=== PATIENT | female | born 2000 | race Caucasian/White ===

== ENCOUNTER 2022-03-06 21:27 | Emergency (ER) | payer SELFPAY ==
[2022-03-06 21:47] VITALS: BP 175/89; PULSE 75; RESP 18; TEMP 36.6; O2SAT 100; BMI 21.2
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
[2022-03-06] MEDS: HYDROcodone-acetaminophen 5-325 mg Tablet 1 TAB PO (22:05)
[2022-03-06] MEDS: tetanus-dipt-pertussis 0.5 mL SDV IM (22:05)
[2022-03-06] MEDS: neomycin-poly-bacitracin oint 28 gm 1 APPLIC TOPICAL (22:06)
[2022-03-06 22:40] VITALS: RESP 18
== END 2022-03-06 22:41 | disposition home or self-care (01) ==
PROVIDERS: Emergency Provider Physician Assistant; PCP Nurse Practitioner Family
DX: T23.252A Burn of second degree of left palm, initial encounter (principal); X12.XXXA Contact with other hot fluids, initial encounter; Y93.G1 Activity, food preparation and clean up; Y92.89 Other specified places as the place of occurrence of the external cause; Z23 Encounter for immunization
CPT/HCPCS: 90471; 90715; 99283

== ENCOUNTER 2023-08-17 17:26 | Emergency (ER) | payer SELFPAY ==
[2023-08-17 17:31] VITALS: BP 168/106; PULSE 51; RESP 18; TEMP 36.6; O2SAT 98; BMI 19.5
--- NOTE | 2023-08-17 17:36 | ECG_ITS ---
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 Measurements Intervals [place] Rate: 57 P: 59 IA: 162 QRS: 56 QRSD: 90 T: 63 QT: 376 QTc: 367 Interpretive Statements SINUS BRADYCARDIA Compared to ECG 06/23/2019 12:45:29 Sinus rhythm no longer present Electronically Signed On 08-17-2023 20:27:34 CDT by Yanira Batista M.D. [id number]
--- NOTE | 2023-08-17 17:56 | XRR_ITS ---
PROCEDURE INFORMATION: Exam: XR Chest Exam date and time: 08/17/2023 6:07 PM Age: 23 years old Clinical indication: Chest pressure; Prior surgery; Surgery date: 6+ months; Surgery type: Cardiac stents; Patient HX: Chest pain; Near syncope TECHNIQUE: Imaging protocol: Radiologic exam of the chest. Views: 1 view. COMPARISON: CT angio chest PE protcl [id number] 06/23/2019 2:08 PM FINDINGS: Lungs: Unremarkable. No consolidation. Pleural spaces: Unremarkable. No pleural effusion. No pneumothorax. Heart/Mediastinum: Aortic stent noted at the level of the diaphragm which is similar in location and appearance to the prior chest CT dated 06/23/2019. No cardiomegaly. Bones/joints: Unremarkable. XR/XR chest 1V portable [id number] IMPRESSION: 1. No acute findings. 2. Aortic stent noted at the level of the diaphragm which is similar in location and appearance to the prior chest CT dated 06/23/2019.
--- NOTE | 2023-08-17 17:57 | W.ED.CHESTPA ---
HPI - Chest Pain General: Chief Complaint: Chest Pain Stated Complaint: cHEST PAIN Time Seen by Provider: 08/17/23 17:46 History of Present Illness: 23-year-old female comes in today for complaints of feeling weak and dizzy with sweating while she was at work. Patient reports that she had a sudden onset of symptoms. Patient does have a history of aortic stenosis with stent placement. Last stent was placed 4 to 5 years ago. Patient last seen her forensic structural engineer 1 year ago. Cardiology strongly recommended patient continue with her medications which include lisinopril and amlodipine. Patient reports she has not been taking her medicine. Patient states financial reasons for not taking her medications. Patient does vape marijuana and nicotine. Associated symptoms: Reports dyspnea and nausea; Deny vomiting Review of Systems General: Reports: 10 or more systems reviewed and unremarkable except in HPI and below Card: Denies: chest pain Resp: Reports: dyspnea GI: Reports: nausea; Denies: vomiting, diarrhea or constipation Neuro: Reports: dizziness [facility] ED PFSH: Medical History No pertinent family history Surgical History No pertinent past surgical history Physical Exam Const: COMMON NORMALS: alert HENMT: COMMON NORMALS: normocephalic HEAD & SCALP: normocephalic THROAT: posterior oropharynx normal Neck/C-Spine: COMMON NORMALS: full ROM Resp: COMMON NORMALS: normal respiratory effort and clear to auscultation bilaterally AUSCULTATION: clear to auscultation bilaterally Cardio: COMMON NORMALS: regular rate and regular rhythm RATE: regular rate RHYTHM: regular rhythm Extremity: COMMON NORMALS: no pedal edema Neuro: SENSORIUM/ORIENTATION: Yes alert Skin: COMMON NORMALS: turgor normal GENERAL SKIN EXAM: turgor normal Course Vital Signs: Vital signs: Vital Signs Temperature 97.8 F 08/17/23 17:31 Pulse Rate 51 L 08/17/23 19:03 Respiratory Rate 16 08/17/23 19:03 Blood Pressure 116/69 08/17/23 19:03 Pulse Oximetry 99 08/17/23 19:03 Oxygen Delivery Me thod Room Air 08/17/23 17:31 MDM - Chest Pain Medical Decision Making Patient 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 Patient appears nontoxic. Patient reports improvement of symptoms since arrival to the ER. Lungs are clear to auscultation. Vital signs are normal except for some elevation of blood pressure. Differential diagnosis includes not limited to anxiety, vasovagal syncope, uncontrolled hypertension, aortic stenosis. CBC and CMP were unremarkable. Troponin was no change at 2 hours. Chest x-ray noted no abnormalities with stent in place in the descending aorta. No change was noted in the stent placement. Reviewed the exam with Dr. Sanchez who agreed with plan of care for discharge with patient need to follow-up with cardiology and primary care. Patient was restarted on her lisinopril 10 mg daily blood pressure did seem to improve prior to discharge from the emergency department to normal range. Lab Data 08/17/23 17:37 08/17/23 17:37 Radiology Impressions Chest X-Ray 08/17/23 17:56 IMPRESSION: 1. No acute findings. 2. Aortic stent noted at the level of the diaphragm which is similar in location and appearance to the prior chest CT dated 06/23/2019. Laboratory Results WBC 6.27 10^3/uL (3.29-11.43) 08/17/23 17:37 RBC 5.17 10^6/uL (3.85-5.65) 08/17/23 17:37 Hgb 11.90 g/dL (11.27-16.99) 08/17/23 17:37 Hct 41.1 % (36-47) 08/17/23 17:37 MCV 79.5 fl (85-98) L 08/17/23 17:37 MCH 23.0 pg (27-33) L 08/17/23 17:37 MCHC 29.0 g/dL (30-55) L 08/17/23 17:37 RDW 15.1 % (12.1-15.1) 08/17/23 17:37 Plt Count 321 10^3/cmm (157-399) 08/17/23 17:37 MPV 11.1 fL (7.4-10.4) H 08/17/23 17:37 Neut % (Auto) 64.8 % 08/17/23 17:37 Lymph % (Auto) 24.6 % 08/17/23 17:37 [place] % (Auto) 8.5 % 08/17/23 17:37 Eos % (Auto) 1.0 % 08/17/23 17:37 Baso % (Auto) 0.8 % 08/17/23 17:37 Neut # (Auto) 4.07 10^3/uL (1.8-7.7) 08/17/23 17:37 Lymph # (Auto) 1.5 10^3/uL (0.8-4.8) 08/17/23 17:37 Cascade # (Auto) 0.5 10^3/uL (0.2-0.9) 08/17/23 17:37 Eos # (Auto) 0.1 10^3/uL (0.0-0.8) 08/17/23 17:37 Baso # (Auto) 0.1 10^3/uL (0.0-0.1) 08/17/23 17:37 Nucleated RBC % (auto) 0 % 08/17/23 17:37 Nucleated RBCs # 0.0 /100WBC 08/17/23 17:37 Sodium 136 mmol/L (136-145) 08/17/23 17:37 Potassium 4.0 mmol/L (3.5-5.1) 08/17/23 17:37 Chloride 103 mmol/L (98-107) 08/17/23 17:37 Carbon Dioxide 21 mmol/L (22-29) L 08/17/23 17:37 Anion Gap 16.0 (5-19) 08/17/23 17:37 BUN 8 mg/dL (6-20) 08/17/23 17:37 Creatinine 0.7 mg/dL (0.5-0.9) 08/17/23 17:37 GFR Calculation 103.7 mL/min (90-130) 08/17/23 17:37 Glucose 123 mg/dL (65-115) H 08/17/23 17:37 Calculated Osmolality 282 mOsm/kg (285-295) L 08/17/23 17:37 Calcium 8.9 mg/dL (8.5-10.5) 08/17/23 17:37 Total Bilirubin 0.4 mg/dL (0.15-1.2) 08/17/23 17:37 AST 15 U/L (0-32) 08/17/23 17:37 ALT 7 U/L (0-33) 08/17/23 17:37 Alkaline Phosphatase 76 U/L (35-105) 08/17/23 17:37 Troponin T Baseline < 6 ng/L (0-10) 08/17/23 17:37 Troponin T 120 Minute 6.0 ng/L (0-10) 08/17/23 19:24 Delta Troponin T 0.22434 ABS# (0-10) 08/17/23 19:24 NT-Pro-B Natriuret Pep 91 pg/mL (0-125) 08/17/23 17:37 Total Protein 7.0 g/dL (6.6-8.7) 08/17/23 17:37 Albumin 4.8 g/dL (3.5-5.2) 08/17/23 17:37 Globulin 2.2 g/dL (1.3-4.6) 08/17/23 17:37 HCG, Qual Negative (Negative) 08/17/23 17:37 All radiology interpretation(s) finalized by discharge EKG Data EKG 1: EKG interpretation date: 08/17/23 EKG interpretation time: 17:33 Prior EKG tracings: not available for review Interpretation: EKG shows a regular sinus rhythm at [address] elevation or ectopy is noted. No prior exam was available for comparison. Computer generated interpretation: Sinus bradycardia, 57 bpm, borderline EKG, unconfirmed report. Discharge Plan Discharge Patient Disposition: Home Clinical Impression: Coarctation of aorta Chest pain Qualifiers: Chest pain type: unspecified Qualified Code(s): R07.9 - Chest pain, unspecified Condition: Stable Prescriptions: New lisinopril 10 mg tablet 10 mg PO DAILY Qty: 30 3RF No Action Triple Antibiotic 3.5mg-400 unit- 5,000 unit/gram ointment 1 applic topical DAILY Qty: 28 0RF ibuprofen 600 mg tablet 600 mg PO Q8H PRN (Reason: pain) Qty: 20 0RF Discharge Orders: Discharge ED (Routine); Ordered 08/17/23 Ordered By: Aryan Ivory Referrals: Britni Phelps FNP [Primary Care Provider] - Discharge Diet: Usual diet Discharge Activity: Increase activity as tolerated Patient Instructions: Chest Pain (ED) Activity Restrictions/Additional Instructions: Follow-up with primary care for continuation of blood pressure medication and recheck of blood pressure. Try to stop the use of nicotine as this may elevate her blood pressure. Drink plenty of water and fluids. Eat a healthy diet. Follow-up with forensic structural engineer for further evaluation and treatment for persistent chest pain. Return to ED for new concerns. 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
[2023-08-17 18:28] LABS: Basophils # 0.1 10^3/uL (0.0-0.1); Basophils % 0.8 %; Eosinophils # 0.1 10^3/uL (0.0-0.8); Hematocrit 41.1 % (36-47); Lymphocytes # 1.5 10^3/uL (0.8-4.8); Lymphocytes % 24.6 %; Mean Corpuscular Volume 79.5 fl (85-98); Mean Platelet Volume 11.1 fL (7.4-10.4); Monocytes # 0.5 10^3/uL (0.2-0.9); Monocytes % 8.5 %; Neutrophils # 4.07 10^3/uL (1.8-7.7); Neutrophils % 64.8 %; Nucleated Red Blood Cells % 0 %; Platelet Count 321 10^3/cmm (157-399); Red Blood Count 5.17 10^6/uL (3.85-5.65); Red Cell Distribution Width 15.1 % (12.1-15.1); Troponin(5th) Baseline < 6 ng/L (0-10); White Blood Count 6.27 10^3/uL (3.29-11.43)
[2023-08-17 18:37] LABS: Alanine Aminotransferase 7 U/L (0-33); Albumin Level 4.8 g/dL (3.5-5.2); Alkaline Phosphatase 76 U/L (35-105); Aspartate Amino Transferase 15 U/L (0-32); Blood Urea Nitrogen 8 mg/dL (6-20); Calcium 8.9 mg/dL (8.5-10.5); Carbon Dioxide 21 mmol/L (22-29); Chloride 103 mmol/L (98-107); Globulin 2.2 g/dL (1.3-4.6); Glomerular Filtration Rate 103.7 mL/min (90-130); Glucose 123 mg/dL (65-115); NT Pro B Type Natriuretic Pept 91 pg/mL (0-125); Osmolality Calculated 282 mOsm/kg (285-295); Sodium 136 mmol/L (136-145); Total Bilirubin 0.4 mg/dL (0.15-1.2)
[2023-08-17 18:39] LABS: HCG, Serum Qual Negative (Negative)
[2023-08-17 19:03] VITALS: BP 116/69; PULSE 51; RESP 16; O2SAT 99
[2023-08-17 19:53] LABS: Troponin 5 2HR Delta 0.00001 ABS# (0-10)
--- NOTE | 2023-08-17 19:55 | ECG_ITS ---
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 Measurements Intervals [place] Rate: 53 P: 40 OR: 170 QRS: 54 QRSD: 101 T: 59 QT: 418 QTc: 396 Interpretive Statements SINUS BRADYCARDIA Compared to ECG 08/17/2023 17:29:00 No significant changes Electronically Signed On 08-17-2023 20:28:12 CDT by Yanira Batista M.D. [id number]
[2023-08-17 20:02] VITALS: BP 131/65; PULSE 54; RESP 16; O2SAT 100
== END 2023-08-17 20:05 | disposition home or self-care (01) ==
PROVIDERS: Emergency Provider Nurse Practitioner Family; PCP Nurse Practitioner Family
DX: Q25.1 Coarctation of aorta (principal); R07.9 Chest pain, unspecified
CPT/HCPCS: 36415; 71045; 80053; 83880; 84484; 84703; 85025; 93005; 99285

== ENCOUNTER 2023-08-26 12:16 | Emergency (ER) | payer MEDICAID, SELFPAY ==
[2023-08-26 12:17] VITALS: BP 150/109; PULSE 95; RESP 16; TEMP 36.7; O2SAT 100; BMI 20.9
[2023-08-26 13:55] LABS: Basophils % 0.8 %; Eosinophils % 0.3 %; Hematocrit 42.3 % (36-47); Lymphocytes # 0.7 10^3/uL (0.8-4.8); Lymphocytes % 18.3 %; Mean Corpuscular HGB Conc 29.8 g/dL (30-55); Mean Corpuscular Hemoglobin 22.9 pg (27-33); Mean Corpuscular Volume 76.8 fl (85-98); Mean Platelet Volume 10.8 fL (7.4-10.4); Monocytes # 0.5 10^3/uL (0.2-0.9); Neutrophils % 67.3 %; Nucleated Red Blood Cells % 0 %; Platelet Count 283 10^3/cmm (157-399); Red Blood Count 5.51 10^6/uL (3.85-5.65); Red Cell Distribution Width 15.5 % (12.1-15.1)
--- NOTE | 2023-08-26 14:11 | W.ED.ABDPA2 ---
HPI - Abdominal Pain General: Chief Complaint: Abdominal Pain Stated Complaint: 5wks preg (LT lower abd) N/V Time Seen by Provider: 08/26/23 13:47 History of Present Illness: Erin Martin is a 23-year-old G3, P1, A1 that is approximately 5 to 6 weeks . Patient presents with nausea vomiting and diarrhea. Onset-nausea and vomiting began 3 days ago and diarrhea started today. Patient states that she has been unable to tolerate any p.o. foods or fluids the last 3 days Patient states this nausea and vomiting is worse than her usual with . She does have left lower quadrant abdominal discomfort. This pain is constant dull ache but worsens with prolonged activity. 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 Associated Symptoms: Reports diarrhea, nausea and vomiting; Denies bloating, chills, constipation, GI cramping, dysuria, fever(s), hematochezia and hematuria Review of Systems General: Reports: 10 or more systems reviewed and unremarkable except in HPI and below Const: Denies: fever(s), chills, change in appetite, change in weight, fatigue or malaise Eyes: Denies: change in vision, eye discomfort, eye discharge or eye redness ENMT: Denies: throat pain, enlarged tonsils, odynophagia, hoarseness, ear or mastoid pain, ear discharge, change in hearing, tinnitus, nasal discharge, nasal congestion, post nasal drip or sinus pain Card: Denies: chest pain, palpitations, irregular heart rhythm, edema, dyspnea on exertion, orthopnea or leg pain with exertion Resp: Denies: dyspnea, productive cough, non-productive cough, wheezing, stridor or chest congestion GI: Reports: abdominal pain, nausea, vomiting and diarrhea; Denies: dysphagia, constipation, bloating, GI cramping or hematochezia : Denies: flank pain, difficulty voiding, dysuria, urinary frequency, urinary urgency, urinary hesitancy, oliguria or hematuria Musc: Denies: neck pain, back pain, extremity pain, joint pain, joint swelling, joint redness, joint warmth or muscle weakness Skin/Breast: Denies: rash, pruritus, erythema, photosensitivity or new lesions Neuro: Denies: headache(s), numbness in extremities, weakness in extremities, sensory changes, lack of coordination, difficulty walking, frequent falls, dizziness, confusion, Slurred speech present, difficulty communicating thoughts, seizure-like activity or involuntary movements Endo: Denies: polyuria, polydipsia or tired all the time Romain/Lymph: Denies: easy bruising or easy bleeding PFSH ED PFSH: Medical History No pertinent family history Surgical History No pertinent past surgical history Physical Exam Const: COMMON NORMALS: no acute distress, patient oriented x3 and alert GENERAL APPEARANCE: cooperative ORIENTATION/CONSCIOUSNESS: Yes awake, Yes oriented to person, Yes oriented to place and Yes oriented to time HENMT: COMMON NORMALS: normocephalic and atraumatic HEAD & SCALP: normocephalic and atraumatic FACE & SINUS: normal facial exam MOUTH: Normal oral and palatal mucosa present THROAT: posterior oropharynx normal Eye: COMMON NORMALS: Equal, round and reactive pupils present, EOMs intact bilaterally, conjunctivae normal and no scleral icterus GENERAL EYE: appearance normal, both eyes and all related structures ALIGNMENT: Yes alignment normal PERIORBITAL: periorbital findings normal CONJUNCTIVA: Yes conjunctivae normal PUPIL: Yes Equal, round and reactive pupils present Neck/C-Spine: COMMON NORMALS: full ROM GENERAL: Yes normal visual inspection Lymph: LYMPHATIC: no lymphadenopathy noted Chest: COMMONS NORMALS: normal inspection of the chest Breast/axilla inspection: Yes no chest deformity, asymmetry, normal contours, no nodules, masses, tenderness Resp: COMMON NORMALS: normal respiratory effort, No retractions, No use of accessory muscles and clear to auscultation bilaterally EFFORT & INSPECTION: Yes able to speak in complete sentences and Yes symmetric chest movement AUSCULTATION: clear to auscultation bilaterally Cardio: COMMON NORMALS: regular rate, regular rhythm and Peripheral pulses 2+ throughout RATE: regular rate RHYTHM: regular rhythm PERIPHERAL PULSES: Peripheral pulses 2+ throughout GI: COMMON NORMALS: Normal to inspection, nondistended, normoactive bowel sounds present, Soft to palpation, non-tender and No hepatosplenomegaly present INSPECTION: Yes normal to inspection AUSCULTATION: Yes normoactive bowel sounds PALPATION: Yes Soft to palpation and Yes No hepatosplenomegaly present RECTAL EXAM: deferred Extremity: COMMON NORMALS: normal to inspection GENERAL: Yes normal exam except as noted Neuro: COMMON NORMALS: patient oriented x3 SENSORIUM/ORIENTATION: Yes alert, Yes oriented to person, Yes oriented to place and Yes oriented to time CRANIAL NERVES: Yes CN normal except as noted Psych: COMMON NORMALS: mental status grossly normal, Normal thought process present, cooperative, activity/motor behavior normal, denies homicidal ideation and denies suicidal ideation THOUGHT PROCESS: Normal thought process present Skin: COMMON NORMALS: no rashes or lesions noted, no wounds and turgor normal GENERAL SKIN EXAM: no rashes or lesions noted and turgor normal Course Vital Signs: Vital signs: Vital Signs Temperature 98.1 F 08/26/23 12:17 Pulse Rate 76 08/26/23 16:34 Respiratory Rate 16 08/26/23 16:34 Blood Pressure 130/90 08/26/23 16:34 Pulse Oximetry 99 08/26/23 16:34 Oxygen Delivery Me thod Room Air 08/26/23 16:34 MDM - Abdominal Pain Medical Decision Making Patient was evaluated in the emergency department today for left lower quadrant abdominal pain nausea vomiting and diarrhea. Patient is approximately 6 weeks . Patient is concerned about abnormal . Patient underwent laboratory evaluation, ultrasound to rule out UTI, ectopic , threatened miscarriage,. Other differential includes gastroenteritis. She has had a viral URI in recent weeks. Initially vomiting started first followed by diarrhea Patient's urine reveals no hematuria or bacteriuria. CBC reveals no leukocytosis. Mild anemia that is probably chronic in nature. Chemistry panel reveals no electrolyte abnormality, abnormal renal function. Her hCG quant was 577. Ultrasound revealsThickened endometrium without identification of gestational sac or intrauterine . Patient is estimating last menstrual cycle around 07/20/2023. Patient does have some mild to moderate free fluid in the left adnexa near the fundus of the uterus. The differentials considered included intrauterine prior to identification of the gestational sac versus ectopic . Recommended that she follow-up with repeat quantitative serum beta hCG and clinical exam. Fortunately, her pain is mild and she is not experiencing any vaginal bleeding or discharge. Patient is going to call her EMERGENCY VEHICLE OPERATIONS INSTRUCTOR tomorrow to arrange follow-up.. Lab Data 08/26/23 13:49 08/26/23 13:49 Labs/Radiology: Radiology Impressions Obstetrics Ultrasound 08/26/23 15:16 IMPRESSION: 1. Thickened endometrium without identification of gestational sac or intrauterine . 2. 1.2 x 1.1 x 1.4 mildly complex hypoechoic focus peripheral right ovary with prominent adjacent right ovarian flow. 3. Wrhv-mw-cykzytaj free fluid of the left adnexa near the fundus of the uterus. 4. Differential consideration includes early intrauterine prior to identification of the gestational sac versus ectopic (with the presence of liro-hb-tqitksyp free fluid). Correlate with quantitative serum beta HCG and follow-up as well as clinical exam. Laboratory Results WBC 4.00 10^3/uL (3.29-11.43) 08/26/23 13:49 RBC 5.51 10^6/uL (3.85-5.65) 08/26/23 13:49 Hgb 12.60 g/dL (11.27-16.99) 08/26/23 13:49 Hct 42.3 % (36-47) 08/26/23 13:49 MCV 76.8 fl (85-98) L 08/26/23 13:49 MCH 22.9 pg (27-33) L 08/26/23 13:49 MCHC 29.8 g/dL (30-55) L 08/26/23 13:49 RDW 15.5 % (12.1-15.1) H 08/26/23 13:49 Plt Count 283 10^3/cmm (157-399) 08/26/23 13:49 MPV 10.8 fL (7.4-10.4) H 08/26/23 13:49 Neut % (Auto) 67.3 % 08/26/23 13:49 Lymph % (Auto) 18.3 % 08/26/23 13:49 [place] % (Auto) 13.0 % 08/26/23 13:49 Eos % (Auto) 0.3 % 08/26/23 13:49 Baso % (Auto) 0.8 % 08/26/23 13:49 Neut # (Auto) 2.70 10^3/uL (1.8-7.7) 08/26/23 13:49 Lymph # (Auto) 0.7 10^3/uL (0.8-4.8) L 08/26/23 13:49 [place] # (Auto) 0.5 10^3/uL (0.2-0.9) 08/26/23 13:49 Eos # (Auto) 0.0 10^3/uL (0.0-0.8) 08/26/23 13:49 Baso # (Auto) 0.0 10^3/uL (0.0-0.1) 08/26/23 13:49 Nucleated RBC % (auto) 0 % 08/26/23 13:49 Nucleated RBCs # 0.0 /100WBC 08/26/23 13:49 Sodium 137 mmol/L (136-145) 08/26/23 13:49 Potassium 3.9 mmol/L (3.5-5.1) 08/26/23 13:49 Chloride 104 mmol/L (98-107) 08/26/23 13:49 Carbon Dioxide 22 mmol/L (22-29) 08/26/23 13:49 Anion Gap 14.9 (5-19) 08/26/23 13:49 BUN 6 mg/dL (6-20) 08/26/23 13:49 Creatinine 0.5 mg/dL (0.5-0.9) 08/26/23 13:49 GFR Calculation 152.9 mL/min (90-130) H 08/26/23 13:49 Glucose 110 mg/dL (65-115) 08/26/23 13:49 Calculated Osmolality 282 mOsm/kg (285-295) L 08/26/23 13:49 Calcium 9.1 mg/dL (8.5-10.5) 08/26/23 13:49 Total Bilirubin 0.3 mg/dL (0.15-1.2) 08/26/23 13:49 AST 18 U/L (0-32) 08/26/23 13:49 ALT 9 U/L (0-33) 08/26/23 13:49 Alkaline Phosphatase 79 U/L (35-105) 08/26/23 13:49 Total Protein 7.3 g/dL (6.6-8.7) 08/26/23 13:49 Albumin 4.9 g/dL (3.5-5.2) 08/26/23 13:49 Globulin 2.4 g/dL (1.3-4.6) 08/26/23 13:49 Ser , Semi-Qnt 577.50 mIU/mL 08/26/23 13:49 Urine Color Yellow (Yellow) 08/26/23 14:57 Urine Appearance Sl hazy (CLEAR) A 08/26/23 14:57 Urine pH 5 (5-7) 08/26/23 14:57 Ur Specific [place] 1.020 (1.005-1.030) 08/26/23 14:57 Urine Protein Neg (Negative) 08/26/23 14:57 Urine Glucose (UA) Norm (Normal) 08/26/23 14:57 Urine Ketones 2+ (Negative) H 08/26/23 14:57 Urine Blood Neg (Negative) 08/26/23 14:57 Urine Nitrate Negative (Negative) 08/26/23 14:57 Urine Bilirubin Neg (Negative) 08/26/23 14:57 Urine Urobilinogen Norm mg/dL (Negative) 08/26/23 14:57 Ur Leukocyte Esterase Negative (Negative) 08/26/23 14:57 Urine RBC None /hpf (0-2) 08/26/23 14:57 Urine WBC Rare /hpf (0-5) 08/26/23 14:57 Ur Squamous Epith Cells 5-10 /hpf (0-5) H 08/26/23 14:57 Amorphous Sediment Not Reportable 08/26/23 14:57 Urine Bacteria Trace /hpf (NONE) 08/26/23 14:57 Urine Mucus 2+ /hpf 08/26/23 14:57 All radiology interpretation(s) finalized by discharge Discharge Plan Discharge Patient Disposition: Home Clinical Impression: Gastroenteritis, Abdominal pain, Condition: Stable Prescriptions: No Action acetaminophen 500 mg Tablet 1,000 mg PO Q6H PRN (Reason: Pain) lisinopril 10 mg tablet 10 mg PO DAILY Qty: 30 3RF Discharge Orders: Discharge ED (Routine); Ordered 08/26/23 Ordered By: Phill Blackwell McTeer Referrals: Britni Phelps FNP [Primary Care Provider] - Discharge Diet: Advance as tolerated Discharge Activity: Resume usual activity Patient Instructions: Abdominal Pain (ED), Opioid Safety, Pain Management Activity Restrictions/Additional Instructions: Follow-up with EMERGENCY VEHICLE OPERATIONS INSTRUCTOR. Call tomorrow for an appointment. Please return to the emergency department promptly if you develop increase in your abdominal pain or develop new symptoms like vaginal bleeding Coding Level of Care Code ED Map And Chart Mounter for Chg Fwd
[2023-08-26 14:26] LABS: Alanine Aminotransferase 9 U/L (0-33); Albumin Level 4.9 g/dL (3.5-5.2); Alkaline Phosphatase 79 U/L (35-105); Anion Gap 14.9 (5-19); Aspartate Amino Transferase 18 U/L (0-32); Blood Urea Nitrogen 6 mg/dL (6-20); Calcium 9.1 mg/dL (8.5-10.5); Carbon Dioxide 22 mmol/L (22-29); Chloride 104 mmol/L (98-107); Globulin 2.4 g/dL (1.3-4.6); Glomerular Filtration Rate 152.9 mL/min (90-130); Glucose 110 mg/dL (65-115); Osmolality Calculated 282 mOsm/kg (285-295); Potassium 3.9 mmol/L (3.5-5.1); Sodium 137 mmol/L (136-145); Total Bilirubin 0.3 mg/dL (0.15-1.2); Total Protein 7.3 g/dL (6.6-8.7)
[2023-08-26] MEDS: sodium chloride 0.9% 1,000 ML 999 ML IV (14:29)
[2023-08-26 15:15] LABS: Add Urine Microscopic? YES; Bilirubin Urine Neg (Negative); Blood Urine Neg (Negative); Glucose Urine UA Norm (Normal); Ketones Urine 2+ (Negative); Leukocyte Esterase Urine Negative (Negative); Nitrate Urine Negative (Negative); Protein Urine Neg (Negative); Urine Appearance SL Hazy (CLEAR); Urine Color Yellow (Yellow); Urobilinogen Urine Norm (Negative); pH Urine 5 (5-7)
--- NOTE | 2023-08-26 15:16 | USR_ITS ---
PROCEDURE INFORMATION: Exam: US First Trimester, Transabdominal and US , Transvaginal Exam date and time: 08/26/2023 3:43 PM Age: 23 years old Clinical indication: complicated by abdominal or pelvic pain; Left lower quadrant; First trimester (<14 weeks 0 days); Gestational age or lmp: Patient states 4w5d; ; Patient HX: Hcg 577.5; Additional info: Abdominal pain, TECHNIQUE: Imaging protocol: Real-time transabdominal obstetrical ultrasound of the maternal pelvis and a first trimester , less than 14 weeks 0 days, with image documentation. Transvaginal imaging was used for better evaluation of the fetus, adnexa, and/or cervix. COMPARISON: CT angio chest PE protcl [id number] 06/23/2019 2:08 PM FINDINGS: MATERNAL: Uterus: Uterus measures 8.2 x 3.6 x 5.4 cm. Endometrium appears thickened, measuring 1.6 cm. No gestational sac or intrauterine is seen at this time. Cervix: Cervix measures 3.2 cm and appears unremarkable. Right ovary/adnexa: Right ovary measures 3.2 x 2 x 3.1 cm. Rounded hypoechoic focus is seen peripheral right ovary measuring 1.2 x 1.1 x 1.4 cm and without internal flow though with prominent adjacent right ovarian flow. A few small follicles noted otherwise. Right ovarian flow is seen with PSV 29 centimeters/second and RI 0.7. Left ovary/adnexa: Left ovary measures 2.4 x 1.4 x 1.7 cm. A few small follicles noted. Left ovarian flow is seen with PSV 13 centimeters/second and RI 0.8. Intraperitoneal space: Ehal-zg-ghwykswd free fluid is seen left adnexa near the fundus of the uterus. US/US OB <=14 wk fetus w transvag IMPRESSION: 1. Thickened endometrium without identification of gestational sac or intrauterine . 2. 1.2 x 1.1 x 1.4 mildly complex hypoechoic focus peripheral right ovary with prominent adjacent right ovarian flow. 3. Kvts-dm-fkjzyjdl free fluid of the left adnexa near the fundus of the uterus. 4. Differential consideration includes early intrauterine prior to identification of the gestational sac versus ectopic (with the presence of dadi-wo-qzglzwhl free fluid). Correlate with quantitative serum beta HCG and follow-up as well as clinical exam.
[2023-08-26 15:22] LABS: WBC Urine RARE /hpf (0-5)
[2023-08-26 15:23] LABS: Add Urine Culture? No; Bacteria Urine TRACE /hpf; Mucus Urine 2+ /hpf
[2023-08-26 16:34] VITALS: BP 130/90; PULSE 76; RESP 16; O2SAT 99
[2023-08-26 17:34] VITALS: BP 130/90; PULSE 76; RESP 16; O2SAT 99
== END 2023-08-26 17:35 | disposition home or self-care (01) ==
PROVIDERS: Emergency Medicine; Emergency Provider Nurse Practitioner; PCP Nurse Practitioner Family
DX: O99.611 Diseases of the digestive system complicating pregnancy, first trimester (principal); K52.9 Noninfective gastroenteritis and colitis, unspecified; Z3A.01 Less than 8 weeks gestation of pregnancy
CPT/HCPCS: 36415; 76801; 76817; 80053; 81001; 84702; 85025; 99284; J7030

== ENCOUNTER → 2023-09-10 14:14 | Outpatient (BNVA) | payer SELFPAY | PROVIDERS: PCP Nurse Practitioner Family; Visit Provider Family Medicine | DX: Z34.90 Encounter for supervision of normal pregnancy, unspecified, unspecified trimester (principal); R30.0 Dysuria; Q25.1 Coarctation of aorta; I10 Essential (primary) hypertension | CPT/HCPCS: 80307; 81000; 81025; 84144; 84443; 84702; 85025; 86592; 86762; 86803; 86850; 86900; 87086; 87340; 87491; 87591; 87624; 87806 ==

== ENCOUNTER 2023-10-08 07:26 | Outpatient (CLI) | payer MEDICAID, SELFPAY ==
--- NOTE | 2023-10-08 07:45 | US_ITS ---
WS: [id number] EARLY OBSTETRICAL ULTRASOUND (<14 WEEKS). HISTORY: This week if possible - left pelvic pain - early COMPARISON: 08/26/2023 Single intrauterine gestational sac is identified. Cardiac activity at 171 BPM. [place]-rump length anna sures 3.8 cm which corresponds to a gestation of 10w5d. No subchorionic hemorrhage. No free fluid. Thickened abnormal appearance to the cervix. I believe in part this is due to an overly distended uri nary bladder causing the lower uterine segments to be collapsing upon each other. No history of bleed ing. LEFT ovary measures 1.7 x 1.8 x 1.3 cm. There is no mass identified. Limited vascularity. No enlargem ent. The RIGHT ovary is not identified. IMPRESSION: 1. Single intrauterine gestation of 10 weeks 5 days with an EDC of 04/30/2024. 2. This is a very limited evaluation of the adnexa including the LEFT ovary. The RIGHT ovary is not identified. 3. Thickening along the cervical canal. I believe in part this is due to an overly distended urinary bladder. By history there is no vaginal bleeding. US/US OB <= 14 weeks fetus [id number] Recommendation: Mildly limited evaluation of the pelvic structures. Only transa bdominal imaging is submitted and there is an overly distended urinary bladder. Depending on the level of concern consider repeat imaging with transvaginal ul trasound exam. This would better evaluate the adnexa and also the cervix. No se condary findings of ovarian torsion.
== END 2023-10-08 07:27 | disposition home or self-care (01) ==
LOC: RAD 07:26
PROVIDERS: PCP Nurse Practitioner Family; Visit Provider Family Medicine
DX: O99.891 Other specified diseases and conditions complicating pregnancy (principal); R10.2 Pelvic and perineal pain; Z3A.10 10 weeks gestation of pregnancy
CPT/HCPCS: 76801

== ENCOUNTER 2023-12-11 12:55 | Outpatient (CLI) | payer MEDICAID, SELFPAY ==
--- NOTE | 2023-12-11 13:00 | US_ITS ---
WS: [id number] OBSTETRICAL ULTRASOUND COMPLETE HISTORY: Anatomy US 4 weeks from now COMPARISON: 10/08/2023 Single intrauterine gestation in transverse presentation. Cervix is Closed and normal length. Cervical length is 5.0 cm. Normal amount of amniotic fluid surrounds the fetus. Placenta: Posterior, no previa or abruption. Placenta grade 1 Heart: 153 BPM. Four chambers are identified. RIGHT and LEFT outflow tracts are unremarkable. Anatomy: Intracranial structures and spine are normal. kidneys, stomach and urinary bladd er are unremarkable. Abdominal wall, three-vessel cord and cord insertion site are normal. 4 extremities are present. profile: Unremarkable. Gender: Female. measurements: BPD = 4.6 cm = 20w0d; HC = 17.7 cm = 20w1d; AC = 14.9 cm = 20w1d; FL = 3.2 cm = 20w1d; EFW: 334 g. Biometry is internally concordant. AGA by ultrasound: 20w1d MABEL by ultrasound: 04/28/2024 IMPRESSION: 1. Single intrauterine gestation of 20w1d with an MABEL of 04/28/2024. Appropriate growth since the rst trimester ultrasound. 2. Unremarkable screening survey of anatomy.
== END 2023-12-11 12:56 | disposition home or self-care (01) ==
LOC: RAD 12:55
PROVIDERS: PCP Nurse Practitioner Family; Visit Provider Family Medicine
DX: Z34.82 Encounter for supervision of other normal pregnancy, second trimester (principal)
CPT/HCPCS: 76805

== ENCOUNTER → 2024-02-06 16:03 | Outpatient (BNVA) | payer MEDICAID, SELFPAY | PROVIDERS: PCP Nurse Practitioner Family; Visit Provider Family Medicine | DX: Z51.81 Encounter for therapeutic drug level monitoring (principal); Z34.80 Encounter for supervision of other normal pregnancy, unspecified trimester | CPT/HCPCS: 82950; 85025 ==

== ENCOUNTER → 2024-03-05 12:59 | Outpatient (BNVA) | payer MEDICAID, SELFPAY | PROVIDERS: PCP Nurse Practitioner Family; Visit Provider Family Medicine | DX: I10 Essential (primary) hypertension (principal); O09.93 Supervision of high risk pregnancy, unspecified, third trimester; Z3A.00 Weeks of gestation of pregnancy not specified | CPT/HCPCS: 82570; 84156 ==

== ENCOUNTER → 2024-03-06 10:08 | Outpatient (BNVA) | payer MEDICAID, SELFPAY | PROVIDERS: PCP Nurse Practitioner Family; Visit Provider Family Medicine | DX: O99.810 Abnormal glucose complicating pregnancy (principal); Z51.81 Encounter for therapeutic drug level monitoring; I10 Essential (primary) hypertension; R03.0 Elevated blood-pressure reading, without diagnosis of hypertension | CPT/HCPCS: 80053; 82951; 82952; 84550; 85025 ==

== ENCOUNTER → 2024-04-02 12:35 | Outpatient (BNVA) | payer MEDICAID, SELFPAY | PROVIDERS: PCP Nurse Practitioner Family; Visit Provider Family Medicine | DX: Z34.90 Encounter for supervision of normal pregnancy, unspecified, unspecified trimester (principal) | CPT/HCPCS: 87081 ==

== ENCOUNTER → 2024-04-09 13:11 | Outpatient (BNVA) | payer MEDICAID, SELFPAY | PROVIDERS: PCP Nurse Practitioner Family; Visit Provider Family Medicine | DX: I10 Essential (primary) hypertension (principal) | CPT/HCPCS: 81000 ==

== ENCOUNTER 2024-04-11 17:30 | Outpatient (CLI) | payer MEDICAID, SELFPAY ==
[2024-04-11] VITALS (10 sets, daily range): BP systolic 141–181; BP diastolic 84–98; PULSE 73–96; BMI 25.4
[2024-04-11 18:40] LABS: Add Urine Microscopic? NO; Charge for UA Resulting for Rev
[2024-04-11 18:41] LABS: Basophils # 0.1 10^3/uL (0.0-0.1); Basophils % 0.5 %; Eosinophils # 0.1 10^3/uL (0.0-0.8); Hematocrit 38.5 % (36-47); Lymphocytes # 1.6 10^3/uL (0.8-4.8); Lymphocytes % 13.9 %; Mean Corpuscular Hemoglobin 28.2 pg (27-33); Mean Corpuscular Volume 85.6 fl (85-98); Mean Platelet Volume 10.2 fL (7.4-10.4); Monocytes # 1.2 10^3/uL (0.2-0.9); Monocytes % 10.4 %; Neutrophils # 8.11 10^3/uL (1.8-7.7); Neutrophils % 70.1 %; Nucleated Red Blood Cells % 0 %; Platelet Count 219 10^3/cmm (157-399); Red Cell Distribution Width 13.2 % (12.1-15.1); White Blood Count 11.57 10^3/uL (3.29-11.43)
[2024-04-11 18:43] LABS: Bilirubin Urine Neg (Negative); Blood Urine Neg (Negative); Glucose Urine UA Norm (Normal); Ketones Urine Negative (Negative); Leukocyte Esterase Urine Negative (Negative); Nitrate Urine Negative (Negative); Protein Urine Neg (Negative); Specific Gravity, Urine 1.005 (1.005-1.030); Urine Appearance Clear (CLEAR); Urine Color Yellow (Yellow); Urobilinogen Urine Neg (Negative); pH Urine 6 (5-7)
[2024-04-11 18:55] LABS: Alanine Aminotransferase 9 U/L (0-33); Albumin Level 3.2 g/dL (3.5-5.2); Alkaline Phosphatase 237 U/L (35-105); Anion Gap 15.7 (5-19); Aspartate Amino Transferase 19 U/L (0-32); Blood Urea Nitrogen 3 mg/dL (6-20); Calcium 8.4 mg/dL (8.5-10.5); Carbon Dioxide 18 mmol/L (22-29); Chloride 106 mmol/L (98-107); Creatinine Clr Calc Pharmacy 262.7818; Globulin 2.7 g/dL (1.3-4.6); Glomerular Filtration Rate 273.3 mL/min (90-130); Glucose 78 mg/dL (65-115); Osmolality Calculated 277 mOsm/kg (285-295); Potassium 3.7 mmol/L (3.5-5.1); Sodium 136 mmol/L (136-145); Total Bilirubin 0.3 mg/dL (0.15-1.2); Total Protein 5.9 g/dL (6.6-8.7); Uric Acid 3.2 mg/dL (2.4-5.7)
[2024-04-11 19:00] LABS: UPRO/UCREAT Ratio 0.36 mg/mg CR; Urine Creatinine 11 mg/dL (28-217); Urine Protein Random 4 mg/dL
--- NOTE | 2024-04-11 19:45 | PM.SDS ---
Short Stay Summary Providers Date of Admit/Discharge: 04/11/24 Attending Provider: Eliecer Guy MD Primary Care Provider: ANDRY Barrera Chief Complaint: Hypertension HPI History of Present Illness Erin Martin is a 24 year old female G3, P1 at 37 weeks 4 days gestation with a known history of coarctation of the aorta who follows with maternal- medicine at [facility] who presents today complaining of elevated blood pressures. She normally takes amlodipine 5 mg daily and states that her pressures mostly run 140s over 80s to 90s. The past several days she has had more elevated pressures 150s over 90s and several intermittent in the severe range. At home she had a 170 over 100s on Sunday and 170/1 100s on . Today here in the hospital her blood pressures have been 156/94, 141/90, 142/90, 181/84, 162/89, 153/84, 157/90. She does complain of a little bit of chest discomfort the past 2 to 3 days. It feels a little bit more of a tightness rather than any pain. She has a little bit of the swelling in her fingers but nothing unusual for her. We ran PIH labs on her and her platelets and AST ALT are within normal limits her urine protein creatinine ratio 0.36. Her uric acid 3.2. She denies any other complications with this . Her normal OB is Dr. Eliecer Guy who is currently out of town so I am covering for him. She did fail her 1 hour glucose tolerance test but passed her 3-hour glucose tolerance test. Her MFM is Dr. Marlee Rios at [facility]. She is scheduled to have a repeat section at [facility] in April 22. She delivered her last about 5 years ago in [place]. To her knowledge she did not have any cardiomyopathy with her prior but states that they had difficulty controlling her blood pressures after delivery. She states it was 1 thing after another . Therefore the recommendation was made to have her deliver in [place]. Review of Systems Narrative: No fever chills nausea vomiting loss of fluid or vaginal bleeding. She denies feeling any contractions. She has good movement. She does complain of some mild chest discomfort that feels like a pressure and has been present the past 2 to 3 days. Home Meds/Allergies Home Medications and Allergies Home Medications Medication Instructions Recorded Confirmed Type acetaminophen 500 mg tablet 1,000 mg PO Q6H PRN Pain 08/26/23 04/11/24 History amlodipine 5 mg tablet 5 mg PO DAILY 11/13/23 04/11/24 History Allergies Allergy/AdvReac Type Severity Reaction Status Date / Time cefdinir [From Omnicef] Allergy Unknown Verified 04/11/24 19:38 PFSH Acute PFSH: Medical History Coarctation of thoracic aorta Surgical History Status post aortic coarctation stent placement Done x 7 or 8 - First at age 2, last around age 17 or 18 Family History Mother Diabetes Social History Smoking and tobacco/nicotine status: current every day tobacco/nicotine user e-cigarettes E-cig/vape details: 2 pods per week Alcohol intake: never Substance/Drug Use: current Other substance/drug use details: THC 1-2x/week 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 Heart regular rate and rhythm, lungs clear to auscultation bilaterally, abdomen is gravid and nontender, extremities have no calf tenderness and no edema. heart tones 135 with moderate variability, positive accelerations, no decelerations. She is lon every 2 minutes but is not feeling them. Hospital Course Hospital Course I spoke with Dr. Hendricks the [facility] fellow on-call at [facility]. She agreed that with the patient's severely elevated blood pressures it was likely time to have a baby and she should be transported there for delivery. The patient, , and myself are comfortable with transport via private vehicle. The patient's blood pressures have not remained steadily in the severe range. She had a 181/84 and a 162/89 that were 10 minutes apart. Otherwise blood pressures have been mostly 150s over 90s. She is otherwise feeling well and they would prefer private vehicle. She was advised to stay essentially n.p.o. They are going to quickly stop at their house which is on the way to [place]. She was advised to take her nightly dose of amlodipine 5 mg with a small sip of water. She may have a few ice chips if she needs to moisten her mouth. Her last fluid intake was 1730 and last solid intake 1130. Discharge Plan Discharge Patient Disposition: Home Prescriptions: No Action amlodipine 5 mg tablet 5 mg PO DAILY ferrous sulfate 325 mg (65 mg iron) tablet 325 mg PO DAILY Qty: 30 3RF acetaminophen 500 mg Tablet 1,000 mg PO Q6H PRN (Reason: Pain) Discharge Orders: Discharge Order (Routine); Ordered 04/11/24 Ordered By: Pastora Junior Diet: As Directed Activity: Bedrest Patient Instructions: Preeclampsia During (DC), OB Undelivered Discharge Activity Restrictions/Additional Instructions: Follow up with your physician in [facility] right now. She has been instructed to drive to [facility] in [place] [address] for delivery. Dr. Hendricks is excepting and they will be expecting the patient. They may briefly stop at their home which is on the way to gather their overnight belongings. Ice chips only to moisten mouth and lips, nothing by mouth otherwise. Attestations Medical Necessity Statement*: Elevated blood pressure in with coarctation of the aorta and need for specialist care in [place] Time Spent in Patient Care*: greater than 30 min Quality Metrics Clinical Quality Measures: [ No reported AMI, CVA or VTE this stay] Coding Level of Care Code Acute Code for Chg Fwd
== END 2024-04-11 19:46 | disposition home or self-care (01) ==
LOC: OPOB 17:33 → OBGYN 17:33
PROVIDERS: Family Medicine; PCP Nurse Practitioner Family; Visit Provider Family Medicine
DX: O16.3 Unspecified maternal hypertension, third trimester (principal); Z3A.38 38 weeks gestation of pregnancy; O99.333 Smoking (tobacco) complicating pregnancy, third trimester
CPT/HCPCS: 36415; 59025; 80053; 81003; 82570; 84156; 84550; 85025; 99211